=== PATIENT | female | born 1940 | race Caucasian/White ===

== ENCOUNTER 2017-06-11 16:12 | Inpatient (IN) ==
[2017-06-11] MEDS ORDERED: KETOROLAC 30 MG/1 ML VIAL ONE (16:39)
[2017-06-11] MEDS ORDERED: ONDANSETRON 4 MG/2 ML VIAL IV STA (16:50)
[2017-06-11] MEDS ORDERED: KETOROLAC 30 MG/1 ML VIAL IV STA (16:50)
[2017-06-11] MEDS ORDERED: ONDANSETRON 4 MG/2 ML VIAL ONE (19:00)
[2017-06-11 19:09] LABS: Basophils # 0.1 10*3/uL (0.0-0.2); Basophils % 0.3 % (0.0-0.8); Eosinophils # 0.1 10*3/uL (0.0-0.87); Eosinophils % 0.4 % (0.00-10.9); Hematocrit 33.8 VOL% (35.7-47.0); Hemoglobin 11.1 GM/DL (12.0-16.0); Immature Granulocytes % 0.5 %; Immature Granulocytes Absolute 0.07 #; Lymphocytes # 1.6 10*3/uL (1.4-4.0); Lymphocytes % 10.7 % (21.3-54.2); Mean Corpuscular HGB Conc 32.8 GM/DL (32-36); Mean Corpuscular Hemoglobin 33 PG (27-34); Mean Corpuscular Volume 99.1 FL (87-102); Mean Platelet Volume 10.6 FL (9.6-12.0); Monocytes % 6.8 % (1.7-12.7); Neutrophils # 12.1 10*3/uL (1.4-7.4); Neutrophils % 81.3 % (38.7-73.9); Platelet Count 210 T/CUMM (130-400); Red Blood Count 3.41 MC/CUMM (3.8-5.5); Red Cell Distribution Width 13.8 % (9.3-17.3); White Blood Count 14.9 T/CUMM (4-12)
[2017-06-11 19:21] LABS: INR 1.2; PT Patient Result 12.3 SECS
[2017-06-11] MEDS ORDERED: DEXTROSE 50% 25 GM/50 ML VIAL IV PRN (20:06)
[2017-06-11] MEDS ORDERED: KETOROLAC 30 MG/1 ML VIAL IV PRN (20:06)
[2017-06-11] MEDS ORDERED: ONDANSETRON 4 MG/2 ML VIAL IV PRN (20:06)
[2017-06-11] MEDS ORDERED: ACETAMINOPHEN 325 MG TABLET PO PRN (20:06)
[2017-06-11] MEDS ORDERED: GLUCAGON 1 MG VIAL IM PRN (20:06)
[2017-06-11 20:51] LABS: Albumin 3.3 G/DL (3.4-5.0); Bilirubin,Total 0.4 MG/DL (0.2-1.0); Osmolality,Calculated 287.4 MOS/KG (273-304); Potassium 4.5 MMOL/L (3.5-5.1)
[2017-06-11] MEDS ORDERED: MORPHINE 2 MG/1 ML SYRINGE IV PRN (20:52)
[2017-06-11] MEDS: DOCUSATE SODIUM 100 MG CAPSULE PO SCH (21:11)
[2017-06-11] MEDS: INSULIN REGULAR 100 UNIT/ML SUBCUT SCH (21:14)
[2017-06-11] MEDS ORDERED: INFLUENZA VIRUS VACCINE 0.5 ML SYRINGE IM ONE (23:43)
[2017-06-12] MEDS: MORPHINE 2 MG/1 ML SYRINGE IV PRN ×2 (04:11→10:49)
[2017-06-12] MEDS ORDERED: VANCOMYCIN 1,000 MG VIAL ONE (07:18)
[2017-06-12] MEDS ORDERED: TRANEXAMIC ACID 1,000 MG/10 ML VIAL IV ONE (07:18)
[2017-06-12] MEDS: LACTATED RINGERS 1,000 ML IV SCH ×2 (07:20→17:19)
[2017-06-12] MEDS ORDERED: diphenhydrAMINE CAP 25 MG CAPSULE PO PRN (08:49)
[2017-06-12] MEDS ORDERED: PROMETHAZINE 25 MG/1 ML VIAL IM PRN (09:00)
[2017-06-12] MEDS ORDERED: oxyCODONE/ACETAMINOPHEN 5-325 MG TABLET PO PRN ×2 (09:00)
[2017-06-12] MEDS ORDERED: MORPHINE 2 MG/1 ML SYRINGE IV PRN (09:00)
[2017-06-12] MEDS ORDERED: LACTULOSE 20 GM/30 ML UDCUP PO PRN (09:00)
[2017-06-12] MEDS ORDERED: TEMAZEPAM 7.5 MG CAPSULE PO PRN (09:00)
[2017-06-12] MEDS: ALBUTEROL/IPRATROPIUM 3 ML NEB RESP TX SCH ×3 (09:15→19:19)
[2017-06-12] MEDS: INSULIN REGULAR 100 UNIT/ML SUBCUT SCH ×4 (09:46→21:21)
[2017-06-12] MEDS: PANTOPRAZOLE 40 MG TABLET PO SCH (09:47)
[2017-06-12] MEDS: DOCUSATE SODIUM 100 MG CAPSULE PO SCH ×4 (09:47→21:13)
[2017-06-12] MEDS ORDERED: PROPOFOL 200 MG/20 ML VIAL IV ONE (09:49)
[2017-06-12] MEDS ORDERED: NEOSTIGMINE 10 MG/10 ML VIAL ONE (09:50)
[2017-06-12] MEDS ORDERED: SODIUM CHLORIDE 0.9% 250 ML IV ONE (09:50)
[2017-06-12] MEDS ORDERED: ROCURONIUM 100 MG/10 ML VIAL IV ONE (09:50)
[2017-06-12] MEDS ORDERED: GLYCOPYRROLATE 0.4 MG/2 ML VIAL ONE (09:50)
[2017-06-12] MEDS ORDERED: KETOROLAC 30 MG/1 ML VIAL ONE (09:50)
[2017-06-12] MEDS ORDERED: LABETALOL 100 MG/20 ML VIAL IV ONE (09:50)
[2017-06-12] MEDS ORDERED: ONDANSETRON 4 MG/2 ML VIAL ONE (09:50)
[2017-06-12] MEDS ORDERED: fentaNYL 100 MCG/2 ML VIAL ONE (09:51)
[2017-06-12] MEDS ORDERED: MIDAZOLAM 2 MG/2 ML VIAL ONE (09:51)
[2017-06-12] MEDS ORDERED: MORPHINE 10 MG/1 ML VIAL IV PRN (11:01)
[2017-06-12] MEDS: sitaGLIPtin 25 MG TABLET PO SCH (15:17)
[2017-06-12] MEDS: RIVAROXABAN 15 MG TABLET PO SCH (19:02)
[2017-06-12] MEDS: SODIUM CHLORIDE 0.45% 1,000 ML IV SCH ×2 (20:00→21:18)
[2017-06-12] MEDS ORDERED: VANCOMYCIN INJ 1,000 MG in SODIUM CHLORIDE 0.9% 250 ML IV ONE (20:00)
[2017-06-12] MEDS: GABAPENTIN 100 MG CAPSULE PO SCH (21:14)
[2017-06-13] MEDS: ALBUTEROL/IPRATROPIUM 3 ML NEB RESP TX SCH ×4 (01:32→21:16)
[2017-06-13] MEDS: KETOROLAC 30 MG/1 ML VIAL IV PRN ×2 (01:48→11:01)
[2017-06-13] MEDS: LACTATED RINGERS 1,000 ML IV SCH (06:06)
[2017-06-13 06:15] LABS: Basophils % 0.4 % (0.0-0.8); Eosinophils # 0.2 10*3/uL (0.0-0.87); Eosinophils % 2.9 % (0.00-10.9); Hemoglobin 8.2 GM/DL (12.0-16.0); Immature Granulocytes % 0.5 %; Immature Granulocytes Absolute 0.04 #; Lymphocytes # 1.2 10*3/uL (1.4-4.0); Lymphocytes % 16.7 % (21.3-54.2); Mean Corpuscular HGB Conc 32.8 GM/DL (32-36); Mean Corpuscular Hemoglobin 33 PG (27-34); Mean Corpuscular Volume 100.8 FL (87-102); Mean Platelet Volume 10.7 FL (9.6-12.0); Monocytes # 0.8 10*3/uL (0.11-0.8); Monocytes % 10.2 % (1.7-12.7); Neutrophils # 5.1 10*3/uL (1.4-7.4); Neutrophils % 69.3 % (38.7-73.9); Platelet Count 143 T/CUMM (130-400); Red Blood Count 2.48 MC/CUMM (3.8-5.5); Red Cell Distribution Width 13.8 % (9.3-17.3); White Blood Count 7.3 T/CUMM (4-12)
[2017-06-13] MEDS ORDERED: SODIUM CHLORIDE 0.9% 1,000 ML IV PRN (06:29)
[2017-06-13 06:32] LABS: Calcium 7.2 MG/DL (8.5-10.1); Osmolality,Calculated 284.5 MOS/KG (273-304)
[2017-06-13] MEDS: INSULIN REGULAR 100 UNIT/ML SUBCUT SCH ×4 (07:40→21:21)
[2017-06-13] MEDS: NEBIVOLOL 10 MG TABLET PO SCH (08:47)
[2017-06-13] MEDS: DILTIAZEM CD 240 MG CAPSULE PO SCH (08:47)
[2017-06-13] MEDS: DOCUSATE SODIUM 100 MG CAPSULE PO SCH ×4 (08:47→21:20)
[2017-06-13] MEDS: ESTROGENS (CONJ) 0.625 MG TABLET PO SCH (08:47)
[2017-06-13] MEDS: MULTIVITAMIN (CENTRUM) TABLET PO SCH (08:47)
[2017-06-13] MEDS: POTASSIUM CHLORIDE 20 MEQ TABLET PO SCH (08:47)
[2017-06-13] MEDS: FUROSEMIDE 40 MG TABLET PO SCH (08:47)
[2017-06-13] MEDS: INSULIN GLARGINE 100 UNIT/ML SUBCUT SCH (08:48)
[2017-06-13] MEDS: MULTIVITAMIN (OCUVITE) TABLET PO SCH (08:48)
[2017-06-13] MEDS: LOSARTAN 25 MG TABLET PO SCH (08:48)
[2017-06-13] MEDS: PANTOPRAZOLE 40 MG TABLET PO SCH (08:48)
[2017-06-13] MEDS: GLIMEPIRIDE 4 MG TABLET PO SCH (08:48)
[2017-06-13] MEDS ORDERED: MAGNESIUM HYDROXIDE SUSP 30 ML UDCUP PO PRN (09:00)
[2017-06-13] MEDS: sitaGLIPtin 25 MG TABLET PO SCH (11:36)
[2017-06-13] MEDS: GABAPENTIN 100 MG CAPSULE PO SCH (21:20)
[2017-06-13] MEDS: RIVAROXABAN 15 MG TABLET PO SCH (21:20)
[2017-06-13] MEDS: SODIUM CHLORIDE 0.45% 1,000 ML IV SCH ×2 (22:13→22:14)
[2017-06-14] MEDS: ALBUTEROL/IPRATROPIUM 3 ML NEB RESP TX SCH ×3 (00:41→13:52)
[2017-06-14 06:52] LABS: Basophils % 0.3 % (0.0-0.8); Eosinophils # 0.3 10*3/uL (0.0-0.87); Eosinophils % 3.7 % (0.00-10.9); Hematocrit 31.6 VOL% (35.7-47.0); Immature Granulocytes % 0.5 %; Immature Granulocytes Absolute 0.04 #; Lymphocytes # 1.3 10*3/uL (1.4-4.0); Lymphocytes % 15.1 % (21.3-54.2); Mean Corpuscular HGB Conc 34.2 GM/DL (32-36); Mean Corpuscular Hemoglobin 32 PG (27-34); Mean Platelet Volume 10.4 FL (9.6-12.0); Monocytes % 11.7 % (1.7-12.7); Neutrophils % 68.7 % (38.7-73.9); Platelet Count 131 T/CUMM (130-400); Red Blood Count 3.36 MC/CUMM (3.8-5.5); Red Cell Distribution Width 15.8 % (9.3-17.3); White Blood Count 8.7 T/CUMM (4-12)
[2017-06-14 06:57] LABS: Hemoglobin 10.8 GM/DL (12.0-16.0)
[2017-06-14 07:21] LABS: Calcium 7.2 MG/DL (8.5-10.1); Osmolality,Calculated 283.7 MOS/KG (273-304); Potassium 4.4 MMOL/L (3.5-5.1)
[2017-06-14] MEDS: INSULIN REGULAR 100 UNIT/ML SUBCUT SCH ×3 (08:37→15:38)
[2017-06-14] MEDS: GLIMEPIRIDE 4 MG TABLET PO SCH (09:19)
[2017-06-14] MEDS: BISACODYL 10 MG SUPP RECTAL PRN ×2 (09:20→14:02)
[2017-06-14] MEDS: DILTIAZEM CD 240 MG CAPSULE PO SCH (09:21)
[2017-06-14] MEDS: DOCUSATE SODIUM 100 MG CAPSULE PO SCH ×2 (09:23→09:24)
[2017-06-14] MEDS: MULTIVITAMIN (OCUVITE) TABLET PO SCH (09:23)
[2017-06-14] MEDS: MULTIVITAMIN (CENTRUM) TABLET PO SCH (09:23)
[2017-06-14] MEDS: INSULIN GLARGINE 100 UNIT/ML SUBCUT SCH (09:24)
[2017-06-14] MEDS: LOSARTAN 25 MG TABLET PO SCH (09:24)
[2017-06-14] MEDS: POTASSIUM CHLORIDE 20 MEQ TABLET PO SCH (09:24)
[2017-06-14] MEDS: ESTROGENS (CONJ) 0.625 MG TABLET PO SCH (09:25)
[2017-06-14] MEDS: PANTOPRAZOLE 40 MG TABLET PO SCH (09:25)
[2017-06-14] MEDS: FUROSEMIDE 40 MG TABLET PO SCH (09:25)
[2017-06-14] MEDS: NEBIVOLOL 10 MG TABLET PO SCH (09:30)
[2017-06-14] MEDS: SODIUM CHLORIDE 0.45% 1,000 ML IV SCH (09:57)
[2017-06-14] MEDS: LACTATED RINGERS 1,000 ML IV SCH (12:16)
[2017-06-14] MEDS: sitaGLIPtin 25 MG TABLET PO SCH (12:26)
[2017-06-14] MEDS ORDERED: OXYMETAZOLINE 0.05% NASAL SPRAY 15 ML BOTTLE BOTH NARES PRN (14:00)
[2017-06-14 15:37] VITALS: BP 143/74
== END 2017-06-14 18:00 | disposition swing bed (61) | DRG 470 ==
LOC: N.ED 16:12 → N.EDINP 16:51 → N.3E 19:15
PROVIDERS: ADMIT Internal Medicine; ATTEND Internal Medicine